=== PATIENT | male | born 1985 | race Caucasian/White ===

== ENCOUNTER 2018-04-23 01:45 | Emergency (ER) | payer BC ==
[2018-04-23] MEDS ORDERED: EPINEPHRINE INJ/PF 1 MG/1 ML AMPULE IM ONE (01:51)
[2018-04-23] MEDS ORDERED: DIPHENHYDRAMINE HCL 50 MG/ML VIAL IV ONE (01:51)
[2018-04-23] MEDS ORDERED: METHYLPREDNISOLONE INJ 125 MG/2 ML SDV IV ONE (01:51)
[2018-04-23] MEDS ORDERED: EPINEPHRINE INJ/PF 1 MG/1 ML AMPULE ONE (01:52)
[2018-04-23] MEDS ORDERED: METHYLPREDNISOLONE INJ 125 MG/2 ML SDV ONE (01:52)
[2018-04-23] MEDS ORDERED: DIPHENHYDRAMINE HCL 50 MG/ML VIAL ONE (01:52)
--- NOTE | 2018-04-23 02:56 | ER Document Report ---
ED General - General Chief Complaint: Allergic Reaction Stated Complaint: ALLERGIC REACTION Time Seen by Provider: 04/23/18 01:51 Notes: Patient is a 32-year-old male presents complaint allergic reaction from ant bites. He says he was bit on his feet. He has had allergic reaction to ant bites in the past. Patient says he felt that and spite his feet and then he started to feel his voice gets raspy in his throat get itchy. No difficulty breathing or swallowing at this time. He is developed hives all over his body. He does itch. No medications prior to arrival. TRAVEL OUTSIDE OF THE [place] IN LAST 30 DAYS: No - Related Data Allergies/Adverse Reactions: amoxicillin Allergy (Verified 04/23/18 01:56) Penicillins Allergy (Verified 04/23/18 01:56) Past Medical History - Social History Smoking Status: Unknown if Ever Smoked Frequency of alcohol use: None Drug Abuse: None Family History: Reviewed & Not Pertinent Patient has suicidal ideation: No Patient has homicidal ideation: No Renal/ Medical History: Denies: Hx Peritoneal Dialysis Review of Systems - Review of Systems Notes: My Normal Review Basic REVIEW OF SYSTEMS: CONSTITUTIONAL : Denies fever, chills, or sweats. Denies recent illness. EENT: Sensation of throat itching RESPIRATORY: Denies cough, cold, or chest congestion. Denies shortness of breath, difficulty breathing, or wheezing. GASTROINTESTINAL: Denies abdominal pain. Denies nausea, vomiting, or diarrhea. GENITOURINARY: Denies difficulty urinating, painful urination, burning, frequency, or blood in urine. MUSCULOSKELETAL: Denies neck or back pain or joint pain or swelling. SKIN: Hives NEUROLOGICAL: Denies altered mental status or loss of consciousness. ALL OTHER SYSTEMS REVIEWED AND NEGATIVE. Physical Exam - Vital signs Vitals: Pulse 72 04/23/18 01:50 - Notes Notes: General Appearance: Well nourished, alert, cooperative, no acute distress, no obvious discomfort. Well-appearing. Vitals: reviewed, See vital signs table. Eyes: PERRL, EOMI, Conjuctiva clear Mouth: No decreasd moisture Throat: No tonsillar inflammation, No airway obstruction. No tongue or pharyngeal wall and. Neck: Supple, no neck tenderness, No neck swelling Lungs: No wheezing, No rales, No rhonci, No accessory muscle use, good air exchange bilaterally. Heart: Normal rate, Regular rythm, No murmur, no rub Abdomen: Normal BS, soft, No rigidity, No abdominal tenderness, No guarding, no rebound, no abdominal masses, no organomegaly Skin: Diffuse hives Neuro: speech clear, oriented x 3, normal affect, responds appropriately to questions. Course - Re-evaluation Re-evalutation: 04/24/18 07:04 Patient given dose of IM epi. He has been given Solu-Medrol and Benadryl. His hives resolved. He looks well. His voice feels improved. He has no pharyngeal swelling. No difficulty breathing. I feel he safe to be discharged home. I prescribed an EpiPen, penicillin. Informed him to take Benadryl as needed for itching. Encourage him return to ER immediately has recurrence of rash despite Benadryl, any difficulty breathing, or if he has use the EpiPen. Patient agrees with plan and will be discharged home. Dictation of this chart was performed using voice recognition software; therefore, there may be some unintended grammatical errors. - Vital Signs Vital signs: Temp Pulse Resp BP Pulse Ox 97.7 F 72 17 115/64 100 04/23/18 02:50 04/23/18 01:50 04/23/18 02:50 04/23/18 02:50 04/23/18 02:50 Discharge - Discharge Clinical Impression: Allergic reaction Qualifiers: Encounter type: initial encounter Qualified Code(s): T78.40XA - Allergy, unspecified, initial encounter Condition: Good Disposition: HOME, SELF-CARE Additional Instructions: Please return to the ER immediately if you have to use the Epipen, have facial swelling, tongue swelling, throat swelling, difficulty breathing, or feel that your reaction is becoming severe. Please use the Epipen if you have any facial swelling, tongue swelling, or difficulty breathing. Take 25-50 mg of Benadryl every 6 hours as needed for itching. Prescriptions: Epinephrine [Epipen 2-Antonio] 0.3 mg IM ASDIR PRN #1 packet PRN Reason: Prednisone 10 mg PO ASDIR #42 tablet
[2018-04-23 03:01] VITALS: BP 115/64
== END 2018-04-23 03:16 | disposition home or self-care (01) ==
LOC: ER 01:45
DX: T63.421A Toxic effect of venom of ants, accidental (unintentional), initial encounter (principal); L50.9 Urticaria, unspecified; R09.89 Other specified symptoms and signs involving the circulatory and respiratory systems
CPT/HCPCS: 99283; 96372; 96374; 96375; J1200; J0171; J2930